=== PATIENT | male | born 1970 | race Caucasian/White ===

== ENCOUNTER → 2019-09-21 12:18 | Outpatient (POV) | payer MEDICAID, SELFPAY ==
[2019-09-21 12:56] VITALS: BMI 22.8
--- NOTE | 2019-09-22 08:21 | HMH.VVPMSO ---
[facility] PM Virtual Visit SOAP Consent for virtual visit:: With the recent concerns about the COVID-19, we are trying to minimize exposure to you by shifting to telehealth appointments whenever possible. It restricts me from seeing you in person, but the trade off is protecting you during this pandemic. Can you see and hear me okay, and do you consent to this option? If not, I would be happy to see if we can reschedule your appointment in the future, when feasible. Has patient consented to this virtual visit?: Yes Subjective:: Patient is a pleasant 49-year-old white male who presents today for medication refills he is being treated for pain secondary to cancer. He is medically managed with oxycodone 10 mg 1 tab p.o. 5 times a day and morphine sulfate extended release 15 mg 1 tab p.o. twice daily. He rates his pain today a 6 out of 10 overall doing well. Patient's urine drug screens have been appropriate in the past. Perla appropriate. Patient is having some issues with a hernia however he would like to wait and ensure that the COVID crisis is over prior to seeking out a surgeon. His morphine equivalent is 105. ROS General: no recent weight change, no fever, no sleep disturbances Respiratory: no cough, no shortness of air, no recurring pulmonary infections Cardiovascular/Peripheral Vascular: No chest pain, No palpitations, no edema, no shortness of breath. Gastrointestinal: no new onset incontinence, normal bowel movements reported Genitourinary: no new onset incontinence Musculoskeletal: Generalized body pain Psychiatric: normal mood/ affect Neurological: [denies new onset weakness in extremities], [denies new onset balance issues] Family history: Reviewed and noncontributory Surgical history: Surgery secondary to cancer Social history: Denies substance abuse Objective:: Physical exam: Constitutional: Healthy appearing, well-developed, alert, in no acute distress Psychiatric: Judgment and insight intact, Alert and oriented x4 Mood and affect: Mood normal, affect appropriate Head and face: Inspection: Normocephalic atraumatic, extraocular movement intact Respiratory: Breathing nonlabored, nondyspneic Cardiovascular: No cyanosis, clubbing, or edema observed Skin: Head and neck: Skin with no lesions or rash observed Gait: Able to walk with assistive device Neurologic: Sensation grossly intact per patient Musculoskeletal: Patient does have decreased range of motion of lumbar spine. Assessment:: Cancer, generalized pain Plan:: We will refill his oxycodone 10 mg 1 tab p.o. 5 times a day and his morphine sulfate extended release 15 mg 1 p.o. twice daily. We will give him 2 months worth of medication. We will see him back in 2 months reassess his symptoms at that time he has been instructed to call the office if he has any issues prior to his next appointment. Patient has been prescribed a controlled substance after being counseled on the medication, medication safety, and possible side effects. PERLA report has been obtained and reviewed prior to prescription and found to be appropriate. Opioid contract was reviewed and signed by the patient, and that they have agreed to all of the terms set forth by our compliance program. This encounter was performed as a telemedicine visit via secure 2 way video and audio to minimize risk and transmission of Covid-19. The patient and we understand the limitations of a telemedicine visit including inability to check reflexes, possibly missing subtle findings on physical exam. Alternative options were presented to the patient and the patient elected to proceed with the visit. We specifically discussed risk factors for Covid-19 including age, heart or lung disease, diabetes, immunosuppression and travel. We also discussed that NSAIDs may worsen Covid-19 infection symptoms and that they should not be used to treat Covid-19 symptoms. Patient was also informed that corticosteroids in any form oral or inj
== END ==
PROVIDERS: Visit Provider Clinical Nurse Specialist Family Health
DX: G89.3 Neoplasm related pain (acute) (chronic) (principal)
CPT/HCPCS: 99202; 99212